=== PATIENT | male | born 1970 | race Caucasian/White ===

== ENCOUNTER 2019-04-18 07:43 | Emergency (ER) | payer MEDICAID ==
[~2019-04-18] VITALS: Ht 175.3 cm; Wt 112.0 kg
[2019-04-18 09:33] LABS: BASOPHILS % 0.6 % (0.0-2.0); EOSINOPHILS % 9.3 % (0.0-5.0); HEMATOCRIT. 40.5 % (42.0-52.0); HEMOGLOBIN. 14.2 g/dL (14.0-18.0); LYMPHOCYTES % 45.4 % (20.0-50.0); MEAN CORPUSCULAR HEMOGLOBIN 30.7 pg (28.0-32.0); MEAN CORPUSCULAR VOLUME 87.6 fL (80.0-94.0); MEAN PLATELET VOLUME 7.2 fl (7.4-10.4); NEUTROPHILS % 39.7 % (40.0-76.0); PLATELET 334 x1000/uL (130-400); RED BLOOD CELL COUNT 4.62 mill/uL (4.7-6.1); RED CELL DISTRIBUTION WIDTH 12.9 % (11.6-14.6)
[2019-04-18 09:41] LABS: CHLORIDE 104 mEq/L (98-107)
[2019-04-18 10:05] LABS: CLARITY URINE CLEAR (CLEAR); COLOR URINE YELLOW (YELLOW); KETONES URINE NEGATIVE (NEGATIVE); LEUKOCYTE ESTERASE URINE NEGATIVE (NEGATIVE); NITRITE URINE NEGATIVE (NEGATIVE); OCCULT BLOOD URINE NEGATIVE (NEGATIVE); PH URINE 5.5 (4.5-8.0); PROTEIN URINE NEGATIVE (NEGATIVE); SPECIFIC GRAVITY URINE 1.025 (1.005-1.030); UROBILINOGEN URINE 0.2 E.U./dL (0.2-1.0)
[2019-04-18 10:50] VITALS: BP 122/74
== END 2019-04-18 10:50 | disposition home or self-care (01) ==
LOC: ER 08:07
DX: N47.1 Phimosis (principal); E11.9 Type 2 diabetes mellitus without complications; R10.30 Lower abdominal pain, unspecified
CPT/HCPCS: 36415; 99283

== ENCOUNTER 2019-12-01 04:57 | Inpatient (IN) | payer MEDICAID ==
[~2019-12-01] VITALS: Ht 175.3 cm; Wt 113.4 kg
[2019-12-01] MEDS ORDERED: ACETAMINOPHEN 325MG TABLET PO ONE (05:30)
[2019-12-01] MEDS ORDERED: SODIUM CHLORIDE 0.9% 1,000 ML IV ONE (06:46)
[2019-12-01] MEDS ORDERED: KETOROLAC 30MG/ML VIAL IV ONE (07:00)
[2019-12-01] MEDS ORDERED: METOCLOPRAMIDE HCL 10MG/2ML VIAL IV ONE (07:00)
[2019-12-01 07:44] LABS: BASOPHILS % 0.7 % (0.0-2.0); EOSINOPHILS % 6.4 % (0.0-5.0); HEMATOCRIT. 40.6 % (42.0-52.0); HEMOGLOBIN. 14.3 g/dL (14.0-18.0); LYMPHOCYTES % 48.1 % (20.0-50.0); MEAN CORPUSCULAR HEMOGLOBIN 30.8 pg (28.0-32.0); MEAN CORPUSCULAR VOLUME 87.8 fL (80.0-94.0); MEAN PLATELET VOLUME 7.4 fl (7.4-10.4); MONOCYTES % 5.8 % (2.0-8.0); PLATELET 314 x1000/uL (130-400); RED BLOOD CELL COUNT 4.62 mill/uL (4.7-6.1); RED CELL DISTRIBUTION WIDTH 12.9 % (11.6-14.6)
[2019-12-01 07:49] LABS: CHLORIDE 104 mEq/L (98-107)
[2019-12-01 07:57] LABS: ETHANOL BLOOD < 10 mg/dL
[2019-12-01] MEDS ORDERED: METHYLPREDNISOLONE SOD SUCC 125 MG/2 ML VIAL IV ONE (08:15)
[2019-12-01] MEDS ORDERED: VALACYCLOVIR HCL 500MG TABLET PO STA (08:18)
[2019-12-01 08:29] LABS: CLARITY URINE CLEAR (CLEAR); COLOR URINE YELLOW (YELLOW); KETONES URINE NEGATIVE (NEGATIVE); LEUKOCYTE ESTERASE URINE NEGATIVE (NEGATIVE); NITRITE URINE NEGATIVE (NEGATIVE); OCCULT BLOOD URINE NEGATIVE (NEGATIVE); PH URINE 5.5 (4.5-8.0); PROTEIN URINE NEGATIVE (NEGATIVE); SPECIFIC GRAVITY URINE 1.048 (1.005-1.030); UROBILINOGEN URINE 0.2 E.U./dL (0.2-1.0)
[2019-12-01] MEDS ORDERED: ASPIRIN 325MG EC TABLET PO ONE (08:30)
[2019-12-01 08:57] LABS: *AMPHETAMINES SCREEN URINE NEGATIVE (NEGATIVE); *BARBITURATES SCREEN URINE NEGATIVE (NEGATIVE); *BENZODIAZEPINES SCREEN URINE NEGATIVE (NEGATIVE); *COCAINE SCREEN URINE NEGATIVE (NEGATIVE); CANNABINOID URINE SCREEN NEGATIVE (NEGATIVE)
[2019-12-01 08:58] LABS: METHADONE URINE SCREEN NEGATIVE (NEGATIVE); OPIATES URINE SCREEN NEGATIVE (NEGATIVE); PHENCYCLIDINE URINE SCREEN NEGATIVE (NEGATIVE)
[2019-12-01] MEDS ORDERED: P20 MT (13:33)
[2019-12-01] MEDS ORDERED: PANT40TA4 MT (13:33)
[2019-12-01] MEDS ORDERED: METF-414 MT (13:33)
[2019-12-01] MEDS ORDERED: INSULIN REGULAR (HUMULIN R) 300UNITS/3ML SUBCUT SCH (14:15)
[2019-12-01] MEDS ORDERED: IPRATROPIUM/ALBUTEROL 0.5-3(2.5)MG/3ML NEB HHN PRN (14:45)
[2019-12-01] MEDS ORDERED: ACETAMINOPHEN 325MG TABLET PO PRN (14:45)
[2019-12-01] MEDS ORDERED: DEXTROSE 50% WATER 50ML SYRINGE IV PRN ×2 (14:45→21:45)
[2019-12-01] MEDS ORDERED: DOCUSATE SODIUM 100MG CAPSULE PO PRN (14:45)
[2019-12-01] MEDS ORDERED: ONDANSETRON HCL 4MG/2ML INJ IV PRN (14:45)
[2019-12-01] MEDS ORDERED: CLONIDINE 0.1MG TABLET PO PRN (14:45)
[2019-12-01] MEDS: BLOOD SUGAR DIAGNOSTIC STRIP TEST SCH ×2 (17:00→21:05)
[2019-12-01] MEDS: PREDNISONE 20MG TABLET PO SCH (17:00)
[2019-12-01] MEDS ORDERED: INSULIN LISPRO 100 UNITS/ML SUBCUT SCH (17:50)
[2019-12-01 18:00] VITALS: BP 115/73
[2019-12-01 20:00] VITALS: BP 115/66
[2019-12-01] MEDS: INSULIN LISPRO 100 UNITS/ML SUBCUT SCH (21:59)
[2019-12-02] VITALS: BP 112/75
[2019-12-02 04:00] VITALS: BP 91/62
[2019-12-02] MEDS ORDERED: BLOOD SUGAR DIAGNOSTIC STRIP TEST SCH (07:20)
[2019-12-02 07:41] LABS: BASOPHILS % 0.5 % (0.0-2.0); HEMATOCRIT. 38.7 % (42.0-52.0); HEMOGLOBIN. 13.7 g/dL (14.0-18.0); LYMPHOCYTES % 22.4 % (20.0-50.0); MEAN CORPUSCULAR HEMOGLOBIN 30.8 pg (28.0-32.0); MEAN CORPUSCULAR VOLUME 86.8 fL (80.0-94.0); MONOCYTES % 3.2 % (2.0-8.0); NEUTROPHILS % 73.9 % (40.0-76.0); PLATELET 342 x1000/uL (130-400); RED BLOOD CELL COUNT 4.46 mill/uL (4.7-6.1); RED CELL DISTRIBUTION WIDTH 13.1 % (11.6-14.6)
[2019-12-02] MEDS ORDERED: INSULIN LISPRO 100 UNITS/ML SUBCUT SCH (07:50)
[2019-12-02 08:00] VITALS: BP 96/62
[2019-12-02] MEDS: PREDNISONE 20MG TABLET PO SCH (08:00)
[2019-12-02 08:01] LABS: CHLORIDE 104 mEq/L (98-107)
[2019-12-02] MEDS: INSULIN LISPRO 100 UNITS/ML SUBCUT SCH (08:05)
[2019-12-02 11:14] VITALS: BP 96/62
== END 2019-12-02 12:19 | disposition home or self-care (01) | DRG 48 ==
LOC: ER 04:57 → EDBEDREQ 10:21 → ENRESERV 14:00 → CANRESERV 14:00 → CANBEDREQ 14:33 → ENRESERV 16:24 → 6WST 17:46
PROVIDERS: ADMIT Internal Medicine; ATTEND Internal Medicine
DX: G51.0 Bell's palsy (principal); E11.65 Type 2 diabetes mellitus with hyperglycemia; R47.81 Slurred speech; Z79.899 Other long term (current) drug therapy
CPT/HCPCS: 36415; 70551; 80048; 80053; 80061; 80305; 80320; 81003; 82962; 83036; 85025; 93005; 96361; 96374; 96375; 99291; J1815; J1885; J2765; J2930; J7030; J7512; G0480

== ENCOUNTER → 2024-05-18 | Emergency (ER) | payer MEDICAID ==
[~2024-05-18] VITALS: Ht 175.3 cm; Wt 108.0 kg
[~2024-05-18] MED LIST: BACITRACIN ZINC OINT UDPKT TOP ONE; LIDOCAINE HCL/PF 1% 10 MG/ML 5ML VIAL INFIL ONE; METF-414 MT; P20 MT; PANT40TA51 MT; TETANUS, DIPHTHERIA, PERTUSSIS VAC/PF 0.5ML (>10YR OLD) IM ONE
[2024-05-18 19:28] VITALS: BP 108/68; PULSE 84; RESP 18; TEMP 98.4; O2SAT 98
== END ==
LOC: ER 19:11
DX: B35.1 Tinea unguium (principal); E11.9 Type 2 diabetes mellitus without complications; Z98.890 Other specified postprocedural states
CPT/HCPCS: 99281